=== PATIENT | male | born 1985 | race American Indian/Alaskan Native ===

== ENCOUNTER 2017-01-11 17:47 | Inpatient (IN) | payer MEDICAID, OTHER ==
[2017-01-11 17:47] VITALS: BMI 23.5
[2017-01-11 18:42] VITALS: O2SAT 100
--- NOTE | 2017-01-11 19:22 | ED PDOC ---
HPI: Psych/Substance Abuse Time Seen by Provider: 01/11/17 18:00 Chief Complaint (Nursing): Psychiatric Evaluation Chief Complaint (Provider): Anxiety History Per: Patient History/Exam Limitations: no limitations Additional Complaint(s): Pt. states he wants to talk to a psychiatrist. Feels confused about his life and has a lot of stress going on right now. No chest pain, dyspnea, headache, dizziness, weakness. Not suicidal or homicidal. Denies drugs or etoh. Past Medical History Reviewed: Nursing Documentation, Vital Signs Vital Signs: Last Vital Signs Temp 98.0 F 01/11/17 18:38 Pulse 98 H 01/11/17 18:38 Resp 16 01/11/17 18:38 BP 129/85 01/11/17 18:38 Pulse Ox 100 01/11/17 18:38 - Medical History PMH: Anxiety Denies: Diabetes, Hepatitis, HIV, Seizures, Sexually Transmitted Disease - Surgical History Surgical History: No Surg Hx - Family History Family History: States: Unknown Family Hx - Living Arrangements Living Arrangements: With Family - Social History Current smoker - smoking cessation education provided: No Alcohol: None Drugs: Denies - Immunization History Hx Tetanus Toxoid Vaccination: No Hx Influenza Vaccination: No Hx Pneumococcal Vaccination: No - Home Medications Home Medications: Ambulatory Orders Medication Instructions Recorded No Known Home Med 03/20/16 - Allergies Allergies/Adverse Reactions: Allergies Allergy/AdvReac Type Severity Reaction Status Date / Time shellfish derived Allergy ANGIOEDEMA Verified 01/11/17 18:38 Review of Systems ROS Statement: Except As Marked, All Systems Reviewed And Found Negative Physical Exam - Reviewed Nursing Documentation Reviewed: Yes Vital Signs Reviewed: Yes - Physical Exam Appears: Positive for: Non-toxic, No Acute Distress Head Exam: Positive for: ATRAUMATIC, NORMAL INSPECTION, NORMOCEPHALIC Skin: Positive for: Normal Color, Warm, DRY Eye Exam: Positive for: EOMI, Normal appearance, PERRL ENT: Positive for: Normal ENT Inspection Neck: Positive for: Normal, Painless ROM Cardiovascular/Chest: Positive for: Regular Rate, Rhythm Respiratory: Positive for: CNT, Normal Breath Sounds Gastrointestinal/Abdominal: Positive for: Normal Exam, Bowel Sounds, Soft. Negative for: Tenderness Back: Positive for: Normal Inspection. Negative for: L CVA Tenderness, R CVA Tenderness Extremity: Positive for: Normal ROM. Negative for: Tenderness, Pedal Edema Neurologic/Psych: Positive for: Alert, Oriented - Laboratory Results Result Diagrams: 01/11/17 20:54 01/11/17 20:54 - ECG O2 Sat by Pulse Oximetry: 100 Pulse Ox Interpretation: Normal - Progress ED Course And Treament: 1023: Crisis saw pt. Will admit. Medically stable for evaluation and treatment. ED OBSERVATION Date of observation admission: 01/11/17 Time of observation admission: 19:22 - Observation admission statement Patient is being placed in observation because:: eval for psych - Goals of Observation Goals of observation are:: monitor and psych eval Disposition - Clinical Impression Clinical Impression: Bipolar disorder - Patient ED Disposition Is Patient to be Admitted: Yes Counseled Patient/Family Regarding: Studies Performed, Diagnosis - Disposition Disposition Time: 22:24 Condition: FAIR
[2017-01-11 21:02] LABS: BASO # 0.1 K/uL (0.0-0.2); BASO % 0.5 % (0.0-2.0); EOS # 0.1 K/uL (0.0-0.7); EOS % 0.6 % (0.0-4.0); HEMATOCRIT 37.6 % (35.0-51.0); LYMPH # 2.8 K/uL (1.0-4.3); LYMPH % 21.5 % (20.0-40.0); MEAN CELL VOLUME 96.5 fl (80.0-94.0); MEAN CORPUSCULAR HEMOGLOBIN 32.2 pg (27.0-31.0); MEAN CORPUSCULAR HGB CONC 33.4 g/dL (33.0-37.0); MEAN PLATELET VOLUME 7.4 fl (7.2-11.7); MONO # 0.6 K/uL (0.0-0.8); MONO % 4.8 % (0.0-10.0); NEUT # 9.3 K/uL (1.8-7.0); NEUT % 72.6 % (50.0-75.0); NRBC % 0.1 % (0.0-0.0); RED CELL DISTRIBUTION WIDTH 13.1 % (11.5-14.5); WHITE BLOOD COUNT 12.8 K/uL (4.8-10.8)
[2017-01-11 21:12] LABS: ALB/GLOB RATIO 1.2 (1.0-2.1); ALCOHOL SERUM < 10 mg/dl (0-10); ALKALINE PHOSPHATASE 67 U/L (38-126); ALT/SGPT 32 U/L (21-72); AST/SGOT 24 U/L (17-59); BILIRUBIN,TOTAL 1.5 mg/dl (0.2-1.3); BLOOD UREA NITROGEN 15 mg/dl (9-20); CALCIUM 9.4 mg/dL (8.4-10.2); CARBON DIOXIDE 23 mmol/L (22-30); CHLORIDE 102 mmol/L (98-107); GFR AFRICAN-AMERICAN > 60; GLUCOSE,RANDOM 175 mg/dL (75-110); POTASSIUM 3.7 MMOL/L (3.6-5.0); SODIUM 138 mmol/l (132-148); TOTAL PROTEIN 7.5 G/DL (6.3-8.2)
[2017-01-12] MEDS ORDERED: Magnesium Hydroxide Susp 30 ml UD PO PRN (00:05)
[2017-01-12] MEDS ORDERED: Alum-Mag Hydrox-Simethicone Susp (30 mL) PO PRN (00:05)
[2017-01-12] MEDS ORDERED: DiphenhydrAMINE 50 mg/ml Inj IM PRN (00:05)
[2017-01-12 00:39] LABS: RBC URINE 4 /hpf (0-3); URINE BACTERIA RARE (<OCC); URINE BILIRUBIN NEGATIVE (NEGATIVE); URINE BLOOD NEGATIVE (NEGATIVE); URINE COLOR YELLOW (YELLOW); URINE GLUCOSE (UA) NEG (Normal); URINE KETONE 80 mg/dL (NEGATIVE); URINE LEUKOCYTE ESTERASE NEG Leu/uL (Negative); URINE PROTEIN 30 mg/dL (NEGATIVE); URINE UROBILINOGEN 0.2-1.0 mg/dL (0.2-1.0); WBC URINE 1 /hpf (0-5)
--- NOTE | 2017-01-12 00:41 | PCM.BM ---
Treatment assets and liabiliti Patient Assests: cooperative, motivated, resourceful, self-reliant, ADL independent, negotiates basic needs, good past tx response Patient Liabilities: poor support system, substance abuse - Milieu Protocol Maintain good personal hygiene: daily Encourage regular showers, daily Assist patient to perform ADL's, every other day Remind patient to perform daily oral care Conduct patient checks and document Observation sheet: Q15 minutes Maintain personal safety: every shift Educate patient to report safety concerns to staff, every shift Monitor environment for contraband/sharps Medication safety: Monitor for expected outcome, potential side effects: every shift, Assess barriers to learning: every shift, Assess readiness for medication education: every shift
[2017-01-12 06:45] LABS: T4 7.91 ug/dl (5.5-11.0)
[2017-01-12 06:58] LABS: THYROID STIMULATING HORMONE 1.46 mIU/ML (0.46-4.68)
[2017-01-12 09:12] VITALS: BP 113/75; PULSE 73; RESP 18; TEMP 97.5
--- NOTE | 2017-01-12 10:19 | PCM.PSYCH ---
Initial Psychiatric Evaluation - Initial Psychiatric Evaluation Type of Admission: Voluntary Legal Status: Capacity Chief Complaint (in patient's own words): i am just here to take a vacation from my family Patient's Reaction to Hospitalization: i want to leave History of Present Illness and Precipitating Events: 31 yo male with history of bipolar disorder who came to the ER seeking admission. now he states he was just admitted because "i needed to get away from my family." he denies having a mental illness and states he sees a psychiatrist in the community "so i can get my General Assistance renewed." He is denying any suicidal or homicidal thoughts and denies any a/v hallucinations. he does have some oriental orthodox preoccupation and refers to himself as a olamide-urge. his thoughts are a bit vague and evasive. he reports fair sleep , good appetite. denies access to weapons. pt states he came to the hospital because he woke up late for his psychiatry appointment in the morning. He is asking to leave the hospital. Current Medications: Active Medications Generic Name Dose Route Start Last Admin Trade Name Freq PRN Reason Stop Dose Admin Acetaminophen 650 mg 01/12/17 00:05 Tylenol 325mg Tab PO Q4 PRN pain level 1 to 7 Al Hydrox/Mg Hydrox/Simethicone 30 ml 01/12/17 00:05 Maalox Plus 30 Ml PO Q4 PRN Dyspepsia Diphenhydramine HCl 50 mg 01/12/17 00:05 Benadryl IM Q6 PRN Extrapyramidal S/S Unable PO Diphenhydramine HCl 50 mg 01/12/17 00:05 Benadryl PO Q6 PRN Extrapyramidal Symptoms Diphenhydramine HCl 50 mg 01/12/17 00:10 Benadryl PO HS PRN Sleep Haloperidol 5 mg 01/12/17 00:05 Haldol PO Q4 PRN Agitation Haloperidol Lactate 5 mg 01/12/17 00:05 Haldol IM Q4 PRN Agitation, Unable to Take PO Lorazepam 2 mg 01/12/17 00:05 Ativan IM Q4 PRN Anxiety/Agitation,Unable PO Lorazepam 2 mg 01/12/17 00:05 Ativan PO Q4 PRN Anxiety/Agitation Magnesium Hydroxide 30 ml 01/12/17 00:05 Milk Of Magnesia PO HS PRN Constipation Past Psychiatric History - Past Psychiatric History Previous Treatment History: Inpatient Prior Professional Help: hospitalized at [facility] in 2009 Prior Psychiatric Treatment: states he has taken buspar in the past. apparently on depakote in past History of Abuse: denies History of ETOH/Drug Use: smokes 4 cigarettes daily. smokes mj 2-3 times of month per his report, uds positive. he denies other substance use. History of Family Illness: denies Pertinent Medical Hx (Current Medical&Sleep Prob, Allergies): Allergies Allergy/AdvReac Type Severity Reaction Status Date / Time shellfish derived Allergy ANGIOEDEMA Verified 01/11/17 18:38 DiphenhydrAMINE [Benadryl] 50 mg PO HS PRN #0 cap 01/12/17 pt states he has diabetes but does not take medications. states his dr. is dr. downing at [facility] who took him off metformin Review of Systems - Psychiatric Psychiatric: As Per HPI Mental Status Examination - Personal Presentation Personal Presentation: Looks stated age - Affect Affect: Constricted - Motor Activity Motor Activity: Calm - Reliability in Providing Information Reliability in Providing Information: Fair - Speech Speech: Other (guarded/vague) - Mood Mood: Neutral - Formal Thought Process Formal Thought Process: Delusions (oriental orthodox/spiritual preoccupations) - Obsessions/Compulsions Obsessions: No Compulsions: No - Cognitive Functions Orientation: Person, Place, Situation, Time Sensorium: Alert Attention/Concentration: Easily distracted Abstract Thinking: [place] Estimate of Intelligence: Average Judgement: Intact, as evidence by: Insight regarding need for hospitalization Memory: Recent intact, as evidence by: Ability to recall events of the day, Remote intact, as evidenced by: Abilit to recall sig. life events - Risk Risk: Suicidal (denies suicidal thoughts, no history of attempts), Diminished functioning (not working) - Strength & Assets Inventory Strength & Assets Inventory: Intelligence - Limitations Limitations: Other DSM 5 DX - DSM 5 DSM 5 Diagnosis: bipolar disorder nos - Recommended/Plan of Treatment Treatment Recommendations and Plan of Treatment: dishcarge home folllow up with aftercare appointments as previously made do not use alcohol, tobacco or other illicit substances call 911 if any suicidal or homicidal thoughts see your primary care doctor regarding your diabetes Projected ELOS: 24 hours - Smoking Cessation Smoking Cessation Initiated: No Reason for not providing: declines
--- NOTE | 2017-01-12 14:48 | PCM.PYCHDC ---
Mental Status Examination - Mental Status Examination Orientation: Person, Place, Situation, Time (see admission assessment) Discharge Summary - Discharge Note Reason for Hospitalization: i want to leave Psychiatric History (includes Medical, Family, Personal Hx): history of dx of bipolar disorder Laboratory Data: Abnormal Lab Results 01/11/17 01/11/17 01/11/17 20:54 20:54 20:54 WBC 12.8 H RBC 3.90 L Hgb 12.6 Hct 37.6 MCV 96.5 H MCH 32.2 H MCHC 33.4 RDW 13.1 Plt Count 276 MPV 7.4 Neut % (Auto) 72.6 Lymph % (Auto) 21.5 [place] % (Auto) 4.8 Eos % (Auto) 0.6 Baso % (Auto) 0.5 Neut # 9.3 H Lymph # 2.8 [place] # 0.6 Eos # 0.1 Baso # 0.1 Sodium 138 Potassium 3.7 Chloride 102 Carbon Dioxide 23 Anion Gap 16 BUN 15 Creatinine 0.8 Est GFR ( Amer) > 60 Est GFR (Non-Af Amer) > 60 Random Glucose 175 H Hemoglobin A1c Calcium 9.4 Total Bilirubin 1.5 H AST 24 ALT 32 Alkaline Phosphatase 67 Total Protein 7.5 Albumin 4.2 Globulin 3.4 Albumin/Globulin Ratio 1.2 Triglycerides Cholesterol LDL Cholesterol Direct HDL Cholesterol Thyroxine (T4) TSH 3rd Generation Urine Color Urine Clarity Urine pH Ur Specific [place] Urine Protein Urine Glucose (UA) Urine Ketones Urine Blood Urine Nitrate Urine Bilirubin Urine Urobilinogen Ur Leukocyte Esterase Urine RBC (Auto) Urine Microscopic WBC Ur Squamous Epith Cells Urine Bacteria Urine Opiates Screen Negative Urine Methadone Screen Negative Ur Barbiturates Screen Negative Ur Phencyclidine Scrn Negative Ur Amphetamines Screen Negative U Benzodiazepines Scrn Negative U Oth Cocaine Metabols Negative U Cannabinoids Screen Positive H Alcohol, Quantitative < 10 01/12/17 01/12/17 01/12/17 00:24 06:12 06:12 WBC RBC Hgb Hct MCV MCH MCHC RDW Plt Count MPV Neut % (Auto) Lymph % (Auto) [place] % (Auto) Eos % (Auto) Baso % (Auto) Neut # Lymph # [place] # Eos # Baso # Sodium Potassium Chloride Carbon Dioxide Anion Gap BUN Creatinine Est GFR ( Amer) Est GFR (Non-Af Amer) Random Glucose Hemoglobin A1c 5.9 Calcium Total Bilirubin AST ALT Alkaline Phosphatase Total Protein Albumin Globulin Albumin/Globulin Ratio Triglycerides 66 Cholesterol 152 LDL Cholesterol Direct 99 HDL Cholesterol 37 Thyroxine (T4) 7.91 TSH 3rd Generation 1.46 Urine Color Yellow Urine Clarity Slighty-cloudy Urine pH 5.0 Ur Specific [place] 1.030 Urine Protein 30 Urine Glucose (UA) Neg Urine Ketones 80 Urine Blood Negative Urine Nitrate Negative Urine Bilirubin Negative Urine Urobilinogen 0.2-1.0 Ur Leukocyte Esterase Neg Urine RBC (Auto) 4 H Urine Microscopic WBC 1 Ur Squamous Epith Cells < 1 Urine Bacteria Rare Urine Opiates Screen Urine Methadone Screen Ur Barbiturates Screen Ur Phencyclidine Scrn Ur Amphetamines Screen U Benzodiazepines Scrn U Oth Cocaine Metabols U Cannabinoids Screen Alcohol, Quantitative Consultations:: List each consultation separately and include: 1. Reason for request. 2. Findings. 3. Follow-up Summary of Hospital Course include:: 1. Description of specific treatment plan utilized for patients during their course of treatmen. 2. Summarize the time- course for resolution of acute symptoms and/or regressed behaviors. 3. Describe issues identified and worked on during hospitalization. 4. Describe medication utilized. 5. Describe medical problems identified and treated. 6. Reassessment of suicide risk Summary of Hospital Course: 31 yo male with history of bipolar disorder who came to the ER seeking admission. now he states he was just admitted because "i needed to get away from my family." he denies having a mental illness and states he sees a psychiatrist in the community "so i can get my General Assistance renewed." He is denying any suicidal or homicidal thoughts and denies any a/v hallucinations. he does have some jainism preoccupation and refers to himself as a olamide-urge. his thoughts are a bit vague and evasive. he reports fair sleep , good appetite. denies access to weapons. pt states he came to the hospital because he woke up late for his psychiatry appointment in the morning. He is asking to leave the hospital. - Final Diagnosis (DSM 5) Condition upon Discharge: FAIR DSM 5: psychosis unspecified Disposition: HOME/ ROUTINE Follow-up Treatment Plan: dishcarge home folllow up with aftercare appointments as previously made do not use alcohol, tobacco or other illicit substances call 911 if any suicidal or homicidal thoughts see your primary care doctor regarding your diabetes - Smoking Cessation Smoking Cessation Medication prescribed: No Reason for not providing: declines - Antipsychotic Medications Pt discharged on 2 or more routine antipsychotic medications: No
== END 2017-01-12 13:28 | disposition home or self-care (01) | DRG 430 ==
LOC: H.ER 17:47 → H.EROBSV 19:23 → H.ERHOLD 22:24 → OBSVTOIN 22:24 → H.PSYCH 23:50
PROVIDERS: ADMIT Psychiatry & Neurology Psychiatry; ATTEND Psychiatry & Neurology Psychiatry
DX: F29 Unspecified psychosis not due to a substance or known physiological condition (principal); F31.9 Bipolar disorder, unspecified; F41.9 Anxiety disorder, unspecified; F17.210 Nicotine dependence, cigarettes, uncomplicated

== ENCOUNTER 2017-02-16 15:14 | Emergency (ER) | payer MEDICAID, OTHER ==
[2017-02-16 15:14] VITALS: BMI 23.5
[2017-02-16 15:40] VITALS: BP 149/106; PULSE 78; RESP 18; TEMP 97.8; O2SAT 100
--- NOTE | 2017-02-16 17:10 | ED PDOC ---
HPI: Psych/Substance Abuse Time Seen by Provider: 02/16/17 15:28 Chief Complaint (Nursing): Psychiatric Evaluation Chief Complaint (Provider): Psychiatric Evaluation History Per: Patient History/Exam Limitations: no limitations Onset/Duration Of Symptoms: Days (x1) Current Symptoms Are (Timing): Still Present Associated Symptoms: Anxiety Additional Complaint(s): Ventura is a 31 y/o male who states that while standing outside, he began feeling anxious. Patient reports he has an appointment with psychiatrist tomorrow. Admits he wanted to come in because he wanted to dry his clothes. PMD: Dr. Reese Past Medical History Reviewed: Historical Data, Nursing Documentation, Vital Signs Vital Signs: Last Vital Signs Temp 97.8 F 02/16/17 15:33 Pulse 78 02/16/17 15:33 Resp 18 02/16/17 15:33 BP 149/106 H 02/16/17 15:33 Pulse Ox 100 02/16/17 15:33 - Medical History PMH: Anxiety, Bipolar Disorder, Depression Denies: Diabetes, Hepatitis, HIV, HTN, Chronic Kidney Disease, Seizures, Sexually Transmitted Disease - Surgical History Surgical History: No Surg Hx - Family History Family History: States: Unknown Family Hx - Social History Current smoker - smoking cessation education provided: Yes (Light) Alcohol: None Drugs: Cannabis - Immunization History Hx Tetanus Toxoid Vaccination: No Hx Influenza Vaccination: No Hx Pneumococcal Vaccination: No - Home Medications Home Medications: Ambulatory Orders Medication Instructions Recorded No Known Home Med 02/13/17 - Allergies Allergies/Adverse Reactions: Allergies Allergy/AdvReac Type Severity Reaction Status Date / Time shellfish derived Allergy ANGIOEDEMA Verified 01/11/17 18:38 Review of Systems ROS Statement: Except As Marked, All Systems Reviewed And Found Negative Psych: Positive for: Anxiety Physical Exam - Reviewed Nursing Documentation Reviewed: Yes Vital Signs Reviewed: Yes - Physical Exam Appears: Positive for: Well, Non-toxic, No Acute Distress Head Exam: Positive for: ATRAUMATIC Skin: Positive for: Normal Color, Warm, Dry Eye Exam: Positive for: Normal appearance Neck: Positive for: Normal Cardiovascular/Chest: Positive for: Regular Rate, Rhythm. Negative for: Murmur Respiratory: Positive for: Normal Breath Sounds. Negative for: Respiratory Distress Extremity: Positive for: Normal ROM. Negative for: Pedal Edema, Deformity Neurologic/Psych: Positive for: Alert, Oriented - ECG O2 Sat by Pulse Oximetry: 100 (RA) Pulse Ox Interpretation: Normal Medical Decision Making Medical Decision Making: Time: 16:41 Initial Plan: Patient drying clothes in the ED. Given sandwich. Upon provider evaluation patient is medically stable, and requires no further treatment in the ED at this time. Patient will be discharged home. Counseling was provided and all questions were answered regarding diagnosis and need for follow up with Psychiatrist. There is agreement to discharge plan. Return if symptoms persist or worsen. Scribe Attestation: Documented by Aleah Stokes, acting as a scribe for Carli Castillo PA-C Provider Scribe Attestation: All medical record entries made by the Scribe were at my direction and personally dictated by me. I have reviewed the chart and agree that the record accurately reflects my personal performance of the history, physical exam, medical decision making, and the department course for this patient. I have also personally directed, reviewed, and agree with the discharge instructions and disposition. Disposition - Clinical Impression Clinical Impression: Anxiety - Disposition Disposition: Routine/Home Disposition Time: 17:01 Condition: GOOD Instructions: Anxiety (ED) Forms: [employer] (Spanish)
== END 2017-02-16 17:50 | disposition home or self-care (01) ==
LOC: H.ER 15:14
DX: F41.9 Anxiety disorder, unspecified (principal)

== ENCOUNTER 2017-07-08 20:00 | Emergency (ER) | payer OTHER ==
[2017-07-08 20:00] VITALS: BMI 23.5
[2017-07-08 20:14] VITALS: BP 156/93; PULSE 68; RESP 16; TEMP 98.1; O2SAT 100
--- NOTE | 2017-07-08 22:32 | ED PDOC ---
HPI: Psych/Substance Abuse Time Seen by Provider: 07/08/17 21:43 Chief Complaint (Nursing): Psychiatric Evaluation Chief Complaint (Provider): Psychiatric Evaluation History Per: Patient History/Exam Limitations: no limitations Onset/Duration Of Symptoms: Unknown Current Symptoms Are (Timing): Still Present Additional Complaint(s): 32 y/o male with no significant past medical history, who presents to the ED requesting a crisis evaluation. 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 Denies homicidal ideations, suicidal ideations, or depression. Denies any medical problems. Past Medical History Reviewed: Historical Data, Nursing Documentation, Vital Signs Vital Signs: Last Vital Signs Temp 98.1 F 07/08/17 20:07 Pulse 68 07/08/17 20:07 Resp 16 07/08/17 20:07 BP 156/93 H 07/08/17 20:07 Pulse Ox 100 07/08/17 20:07 - Medical History PMH: Anxiety, Bipolar Disorder, Depression Denies: Diabetes, Hepatitis, HIV, HTN, Chronic Kidney Disease, Seizures, Sexually Transmitted Disease - Surgical History Surgical History: No Surg Hx - Family History Family History: States: Unknown Family Hx - Social History Current smoker - smoking cessation education provided: No Alcohol: None Drugs: Denies - Immunization History Hx Tetanus Toxoid Vaccination: No Hx Influenza Vaccination: No Hx Pneumococcal Vaccination: No - Home Medications Home Medications: Ambulatory Orders Medication Instructions Recorded No Known Home Med 02/13/17 - Allergies Allergies/Adverse Reactions: Allergies Allergy/AdvReac Type Severity Reaction Status Date / Time shellfish derived Allergy ANGIOEDEMA Verified 07/08/17 20:07 Review of Systems ROS Statement: Except As Marked, All Systems Reviewed And Found Negative Psych: Negative for: Suicidal ideation Physical Exam - Reviewed Nursing Documentation Reviewed: Yes Vital Signs Reviewed: Yes - Physical Exam Appears: Positive for: Non-toxic, No Acute Distress Head Exam: Positive for: ATRAUMATIC, NORMOCEPHALIC Skin: Positive for: Normal Color, Warm. Negative for: Rash Eye Exam: Positive for: EOMI, Normal appearance, PERRL Neck: Positive for: Normal, Painless ROM Extremity: Positive for: Normal ROM. Negative for: Deformity Neurologic/Psych: Positive for: Alert, Oriented, Gait (steady) - ECG O2 Sat by Pulse Oximetry: 100 (RA) Pulse Ox Interpretation: Normal Medical Decision Making Medical Decision Making: Time: 21:42 Initial Impression: Paranoid behavior Initial Plan: --Crisis evaluation --Reevaluation Time: 00:00 Patient signed out to Dr. Navas pending crisis evaluation. Scribe Attestation: Documented by Lokesh Noyola, acting as a scribe for Nayeli Blum MD. Provider Scribe Attestation: All medical record entries made by the Scribe were at my direction and personally dictated by me. I have reviewed the chart and agree that the record accurately reflects my personal performance of the history, physical exam, medical decision making, and the department course for this patient. I have also personally directed, reviewed, and agree with the discharge instructions and disposition. Disposition - Clinical Impression Clinical Impression: Bipolar disorder - Patient ED Disposition Is Patient to be Admitted: Transfer of Care Counseled Patient/Family Regarding: Studies Performed, Diagnosis - Disposition Referrals: [facility] [Outside] Disposition: Transfer of Care Disposition Time: 00:00 Condition: STABLE Instructions: Bipolar Disorder Patient Signed Over To: Michael Navas Handoff Comments: pending crisis evaluation
--- NOTE | 2017-07-09 00:23 | ED PDOC ---
- ECG O2 Sat by Pulse Oximetry: 100 (RA) Pulse Ox Interpretation: Normal Medical Decision Making Medical Decision Making: Time: 00:00 Patient signed out to me by Dr. Blum pending crisis evaluation. Clinical Impression: Bipolar Disorder 0030 Patient cleared by crisis for outpatient followup by Dr. Beal w/ dx: bipolar disorder. Upon provider evaluation patient is feeling better, and requires no further treatment in the ED at this time. Patient will be discharged. Counseling was provided and all questions were answered regarding diagnosis and need for follow up with PMD. There is agreement to discharge plan. Return if symptoms persist or worsen. Scribe Attestation: Documented by Nagi Barron, acting as a scribe for Michael Navas MD Provider Scribe Attestation: All medical record entries made by the Scribe were at my direction and personally dictated by me. I have reviewed the chart and agree that the record accurately reflects my personal performance of the history, physical exam, medical decision making, and the department course for this patient. I have also personally directed, reviewed, and agree with the discharge instructions and disposition. Disposition - Clinical Impression Clinical Impression: Bipolar disorder - POA Present On Arrival: None - Disposition Referrals: [facility] [Outside] Disposition: Routine/Home Disposition Time: 00:35 Condition: STABLE Instructions: Bipolar Disorder Forms: [employer] (Nepalese)
[2017-07-09 01:33] LABS: BARBITURATES, UR NEGATIVE (NEGATIVE); BENZODIAZEPINES, UR NEGATIVE (NEGATIVE); OPIATES, UR NEGATIVE (NEGATIVE); PHENCYCLIDINE, UR NEGATIVE (NEGATIVE)
== END 2017-07-09 00:40 | disposition home or self-care (01) ==
LOC: H.ER 20:00
DX: F31.9 Bipolar disorder, unspecified (principal); F41.9 Anxiety disorder, unspecified

== ENCOUNTER 2017-07-15 21:03 | Emergency (ER) | payer OTHER ==
[2017-07-15 21:04] VITALS: BMI 23.5
[2017-07-15 21:08] VITALS: BP 144/104; PULSE 103; RESP 16; TEMP 98.3; O2SAT 98
== END 2017-07-15 21:25 | disposition left against medical advice (07) ==
LOC: H.ER 21:03
DX: Z02.89 Encounter for other administrative examinations (principal)

== ENCOUNTER 2017-09-23 10:23 | Emergency (ER) | payer MEDICAID, OTHER ==
[2017-09-23 10:24] VITALS: BMI 23.5
[2017-09-23 10:28] VITALS: TEMP 98.3; O2SAT 98
--- NOTE | 2017-09-23 11:32 | ED PDOC ---
HPI: Psych/Substance Abuse Time Seen by Provider: 09/23/17 10:52 Chief Complaint (Nursing): Psychiatric Evaluation Chief Complaint (Provider): missed appt History Per: Patient (32 yo male h/o bipolar disorder not currently on medications states he forget what his f/u info was from last visit. Denies any current complaints. ) Past Medical History Reviewed: Historical Data, Nursing Documentation, Vital Signs Vital Signs: Last Vital Signs Temp 98.3 F 09/23/17 10:27 Pulse 98 H 09/23/17 10:27 Resp 20 09/23/17 10:27 BP 112/66 09/23/17 10:27 Pulse Ox 98 09/23/17 10:32 - Medical History PMH: Anxiety, Bipolar Disorder, Depression Denies: Diabetes, Hepatitis, HIV, HTN, Chronic Kidney Disease, Seizures, Sexually Transmitted Disease - Family History Family History: States: Unknown Family Hx - Immunization History Hx Tetanus Toxoid Vaccination: No Hx Influenza Vaccination: No Hx Pneumococcal Vaccination: No - Home Medications Home Medications: Ambulatory Orders Medication Instructions Recorded No Known Home Med 02/13/17 - Allergies Allergies/Adverse Reactions: Allergies Allergy/AdvReac Type Severity Reaction Status Date / Time shellfish derived Allergy ANGIOEDEMA Verified 09/23/17 10:32 Review of Systems ROS Statement: Except As Marked, All Systems Reviewed And Found Negative Physical Exam - Reviewed Nursing Documentation Reviewed: Yes Vital Signs Reviewed: Yes - Physical Exam Appears: Positive for: Well, Non-toxic, No Acute Distress Head Exam: Positive for: ATRAUMATIC, NORMAL INSPECTION, NORMOCEPHALIC Skin: Positive for: Normal Color, Warm, DRY Eye Exam: Positive for: EOMI, Normal appearance, PERRL ENT: Positive for: Normal ENT Inspection Neck: Positive for: Normal, Painless ROM Cardiovascular/Chest: Positive for: Regular Rate, Rhythm Respiratory: Positive for: CNT, Normal Breath Sounds Gastrointestinal/Abdominal: Positive for: Normal Exam, Soft Back: Positive for: Normal Inspection Extremity: Positive for: Normal ROM Neurologic/Psych: Positive for: Alert, Oriented - ECG O2 Sat by Pulse Oximetry: 98 - Progress ED Course And Treament: Patient noted comfortable in ED, listening to his music. d/w Crisis. Patient missed appointment outpatient 08/12/2017. Phone number for outpatient scheduling given. [facility] walk-in service information given. Disposition - Clinical Impression Clinical Impression: Bipolar disorder - Patient ED Disposition Is Patient to be Admitted: No - Disposition Disposition: Routine/Home Disposition Time: 11:33 Condition: FAIR Instructions: Bipolar Disorder (DC) Forms: [employer] (Mauritian)
[2017-09-23 12:11] VITALS: BP 110/70; PULSE 90; RESP 18
== END 2017-09-23 12:09 | disposition home or self-care (01) ==
LOC: H.ER 10:23
DX: F31.9 Bipolar disorder, unspecified (principal); F41.9 Anxiety disorder, unspecified